=== PATIENT | male | born 1940 | race Caucasian/White ===

== ENCOUNTER 2018-02-24 20:41 | Emergency (ER) | payer OTHER ==
[~2018-02-24] VITALS: Ht 182.9 cm; Wt 136.1 kg
[2018-02-24 20:49] VITALS: Ht 182.9 cm; Wt 136.1 kg
[2018-02-25 00:41] VITALS: BP 131/79
== END 2018-02-25 00:41 | disposition home or self-care (01) ==
LOC: ED 20:41
DX: S76.012A Strain of muscle, fascia and tendon of left hip, initial encounter (principal); I48.91 Unspecified atrial fibrillation; J44.9 Chronic obstructive pulmonary disease, unspecified; I10 Essential (primary) hypertension; E11.9 Type 2 diabetes mellitus without complications; X58.XXXA Exposure to other specified factors, initial encounter; Y93.89 Activity, other specified; Y92.89 Other specified places as the place of occurrence of the external cause; Y99.8 Other external cause status

== ENCOUNTER 2018-03-14 23:31 | Emergency (ER) | payer OTHER ==
[~2018-03-14] VITALS: Ht 182.9 cm; Wt 136.1 kg
[2018-03-14 23:37] VITALS: Ht 182.9 cm; Wt 136.1 kg
[2018-03-15 00:42] LABS: BASOPHIL % 0.3 % (0-2); PLATELET COUNT 145 x10^3mcL (130-400)
[2018-03-15 01:05] LABS: CALCIUM 8.4 mg/dL (8.5-10.1); CARBON DIOXIDE 30.7 mmol/L (21-32); CHLORIDE SERUM 103 mmol/L (98-107); CREATININE SERUM 1.2 mg/dL (0.7-1.3); GLUCOSE SERUM 183 mg/dL (74-106); SODIUM SERUM 141 mmol/L (136-145)
[2018-03-15 01:12] LABS: ALKALINE PHOSPHATASE 52 U/L (46-116); ALT/SGPT 29 U/L (16-63); AST/SGOT 30 U/L (15-37); BILIRUBIN TOTAL 1.01 mg/dL (0.20-1.00); TOTAL PROTEIN, SERUM 6.9 g/dL (6.4-8.2)
[2018-03-15 01:16] LABS: RED CELL DISTRIBUTION WIDTH 18.4 % (11.5-14.5)
[2018-03-15 01:25] LABS: ALBUMIN 2.7 g/dL (3.4-5.0)
[2018-03-15 03:47] VITALS: BP 120/71
== END 2018-03-15 03:47 | disposition home or self-care (01) ==
LOC: ED 23:31
PROVIDERS: Emergency Medicine
DX: N50.89 Other specified disorders of the male genital organs (principal); J44.9 Chronic obstructive pulmonary disease, unspecified; I10 Essential (primary) hypertension; E11.9 Type 2 diabetes mellitus without complications; E78.00 Pure hypercholesterolemia, unspecified; I48.91 Unspecified atrial fibrillation
CPT/HCPCS: 36415

== ENCOUNTER 2018-04-07 22:05 | Inpatient (IN) | payer OTHER ==
[~2018-04-07] VITALS: Ht 182.9 cm; Wt 138.4 kg
[2018-04-07 22:12] VITALS: Ht 182.9 cm; Wt 138.4 kg
[2018-04-07 23:06] LABS: CALCIUM 8.3 mg/dL (8.5-10.1); CARBON DIOXIDE 32.6 mmol/L (21-32); CHLORIDE SERUM 102 mmol/L (98-107); CREATININE SERUM 1.2 mg/dL (0.7-1.3); GLUCOSE SERUM 272 mg/dL (74-106); SODIUM SERUM 139 mmol/L (136-145)
[2018-04-07 23:13] LABS: ALKALINE PHOSPHATASE 49 U/L (46-116); ALT/SGPT 22 U/L (16-63); AST/SGOT 26 U/L (15-37); BILIRUBIN TOTAL 0.8 mg/dL (0.20-1.00); HDL CHOLESTEROL 50 mg/dL (40-60); TOTAL PROTEIN, SERUM 7.1 g/dL (6.4-8.2)
[2018-04-07 23:14] LABS: ALBUMIN 2.8 g/dL (3.4-5.0); CHOLESTEROL 126 mg/dL (<200)
[2018-04-07 23:26] LABS: BASOPHIL % 0.7 % (0-2); PLATELET COUNT 117 x10^3mcL (130-400)
[2018-04-07] MEDS ORDERED: ATORVASTATIN CA40 M1 PO (23:37)
[2018-04-07] MEDS ORDERED: CARVEDILOL6.25 M1 PO (23:38)
[2018-04-07] MEDS ORDERED: NOR10T PO (23:38)
[2018-04-07] MEDS ORDERED: POTASSIUM CHLO10 MEQ PO (23:39)
[2018-04-07] MEDS ORDERED: SERTRALINE50 M1 PO (23:39)
[2018-04-07] MEDS ORDERED: SPIRONOLACTONE50 MG PO (23:39)
[2018-04-07] MEDS ORDERED: DIGOXIN0.125 M1 PO (23:44)
[2018-04-07] MEDS ORDERED: FUROSEMIDE40 MG PO (23:45)
[2018-04-07] MEDS ORDERED: COUMADIN7.5 MG (23:46)
[2018-04-08] VITALS (7 sets, daily range): BP systolic 105–142; BP diastolic 55–83
[2018-04-08 00:33] LABS: MAGNESIUM 1.7 mg/dL (1.8-2.4)
[2018-04-08 00:39] LABS: CHOLESTEROL/HDL RATIO 2.5
[2018-04-08 07:05] LABS: CALCIUM 8.3 mg/dL (8.5-10.1); CARBON DIOXIDE 30.3 mmol/L (21-32); CHLORIDE SERUM 102 mmol/L (98-107); GLUCOSE SERUM 203 mg/dL (74-106); SODIUM SERUM 139 mmol/L (136-145)
[2018-04-08 13:02] LABS: UA SPECIFIC GRAVITY 1.015 (1.005-1.035); microscopic required? YES; urine erythrocyte TRACE (NEGATIVE)
[2018-04-08 13:50] LABS: AMPHETAMINE QUAL UR NONE DETECTED (See below)
[2018-04-09 05:21] VITALS: BP 139/90
[2018-04-09 06:27] LABS: BASOPHIL % 0.5 % (0-2)
[2018-04-09 06:28] LABS: CALCIUM 8.4 mg/dL (8.5-10.1); CARBON DIOXIDE 31.1 mmol/L (21-32); CHLORIDE SERUM 101 mmol/L (98-107); CREATININE SERUM 0.9 mg/dL (0.7-1.3); GLUCOSE SERUM 146 mg/dL (74-106); POTASSIUM SERUM 4.5 mmol/L (3.5-5.1); SODIUM SERUM 134 mmol/L (136-145)
[2018-04-09 06:56] LABS: PLATELET COUNT 121 x10^3mcL (130-400); RED CELL DISTRIBUTION WIDTH 18.9 % (11.5-14.5)
[2018-04-09 09:45] VITALS: BP 138/83
[2018-04-09 13:37] VITALS: BP 107/59
[2018-04-09 16:24] VITALS: BP 129/86
[2018-04-09 20:22] VITALS: BP 114/65
[2018-04-10 05:42] VITALS: BP 126/65
[2018-04-10 07:19] LABS: BASOPHIL % 0.5 % (0-2)
[2018-04-10 07:27] LABS: CALCIUM 8.5 mg/dL (8.5-10.1); CARBON DIOXIDE 30.5 mmol/L (21-32); CHLORIDE SERUM 100 mmol/L (98-107); CREATININE SERUM 0.9 mg/dL (0.7-1.3); GLUCOSE SERUM 137 mg/dL (74-106); POTASSIUM SERUM 4.6 mmol/L (3.5-5.1); SODIUM SERUM 133 mmol/L (136-145)
[2018-04-10 08:07] LABS: PLATELET COUNT 128 x10^3mcL (130-400); RED CELL DISTRIBUTION WIDTH 18.6 % (11.5-14.5)
[2018-04-10 09:31] VITALS: BP 132/62
[2018-04-10 11:30] VITALS: BP 121/70
[2018-04-10 11:49] VITALS: BP 132/62
== END 2018-04-10 15:07 | disposition home or self-care (01) | DRG 602 ==
LOC: ED 22:05 → DU 23:42
PROVIDERS: Emergency Medicine; Internal Medicine
DX: L03.116 Cellulitis of left lower limb (principal); J96.21 Acute and chronic respiratory failure with hypoxia; I50.43 Acute on chronic combined systolic (congestive) and diastolic (congestive) heart failure; I24.9 Acute ischemic heart disease, unspecified; Z68.41 Body mass index [BMI] 40.0-44.9, adult; I11.0 Hypertensive heart disease with heart failure; L03.115 Cellulitis of right lower limb; E11.65 Type 2 diabetes mellitus with hyperglycemia; I87.2 Venous insufficiency (chronic) (peripheral); I25.10 Atherosclerotic heart disease of native coronary artery without angina pectoris; I48.91 Unspecified atrial fibrillation; G47.33 Obstructive sleep apnea (adult) (pediatric); J44.9 Chronic obstructive pulmonary disease, unspecified; E78.5 Hyperlipidemia, unspecified; E66.01 Morbid (severe) obesity due to excess calories; Z99.81 Dependence on supplemental oxygen; Z91.14 Patient's other noncompliance with medication regimen; Z79.82 Long term (current) use of aspirin; Z79.4 Long term (current) use of insulin
CPT/HCPCS: 36600; 82962; 83880; 97110-GP; 97116-GP; 97530-GP; J1940; J1956; J3475; J3490; J7050; J7620; Q0092